=== PATIENT | female | born 1970 | race Caucasian/White ===

== ENCOUNTER 2021-12-03 17:30 | Emergency (ER) | payer OTHER ==
[~2021-12-03 17:30] MED LIST: CYANOCOBAL1000 MCG/1 SC; ESTRADIOL1 EAC2 TOP; LIPITOR10 MG PO; LISINOPRIL-HCT1 EACH PO; PROBIOTIC1 EAC1 PO; PROTONIX 40MG T40 MG PO; VITAMIN D325 MC1 PO; WELLBUTRIN100 MG PO
[2021-12-03 18:57] LABS: BASOPHIL 0.2 % (0-2); EOSINOPHIL 0.1 % (0-5); HCT 44.8 % (37.0-47.0); HGB 14.4 g/dl (12.5-16.0); LYMPHOCYTE 10.1 % (15-48); MCH 29.2 pg (25.0-31.0); MCHC 32.1 g/dL (32.0-36.0); MCV 90.9 fL (78.0-100.0); MONOCYTE 5.7 % (0-12); NEUTROPHIL 83.6 % (41-80); NRBC 0; PLT 314 K/uL (150-400); RBC 4.93 M/uL (4.20-5.40); RDW 13.4 % (11.5-14.0); WBC 12.4 K/uL (4.0-10.5)
[2021-12-03 19:08] LABS: INR 1.06 (0.9-1.2); PROTHROMBIN TIME 13.2 SECONDS (11.8-13.4)
[2021-12-03 19:10] LABS: D-DIMER 0.51 ug/mLFEU (0.00-0.41)
[2021-12-03 19:28] LABS: ALBUMIN 3.5 g/dL (3.4-5.0); BILIRUBIN - TOTAL 0.5 mg/dL (0.2-1.0); BUN/CREAT RATIO (CALC) 29.4 RATIO; CREATININE 0.68 mg/dL (0.51-0.95); GLOBULIN (CALCULATION) 3.7 g/dL; POTASSIUM 3.4 mmol/L (3.5-5.1); TOTAL PROTEIN 7.2 g/dL (6.4-8.2)
[2021-12-03 19:30] LABS: CORONAVIRUS 2019 SARS-COV-2 NEGATIVE (NEGATIVE); INFLUENZA A NAA NEGATIVE (NEGATIVE)
[2021-12-03] MEDS ORDERED: ONDANSETRON ODT4 MG PO (21:27)
== END 2021-12-03 21:35 | disposition home or self-care (01) ==
LOC: FER 17:30
PROVIDERS: Nurse Practitioner Family
DX: B34.9 Viral infection, unspecified (principal); I10 Essential (primary) hypertension; K21.9 Gastro-esophageal reflux disease without esophagitis; Z20.822 Contact with and (suspected) exposure to COVID-19; Z88.6 Allergy status to analgesic agent; Z79.899 Other long term (current) drug therapy
CPT/HCPCS: 36415; 71045; 80053; 83880; 84484; 85025; 85379; 85610; 93005; 96372; J1885; J2405; J7030; U0002